=== PATIENT | male | born 1985 | race African-American/Black ===

== ENCOUNTER 2016-04-26 18:29 | Emergency (ER) | payer SELFPAY ==
[~2016-04-26] VITALS: Ht 170.2 cm; Wt 95.5 kg
[~2016-04-26 18:29] MED LIST: ABILIFY10 MG PO; ALPRAZOLAM1 MG PO; AMOXICILLIN500 MG PO; AMOXICILLIN875 MG PO; ANTIVERT25 MG PO; BACTRIM,SEPT1 TABLET PO; BENADRYL25 MG PO; BENTROPINE; BENTYL20 MG PO; Bentyl PO; CEFDINIR300 MG PO; CELEXA20 MG PO; CELEXA40 MG PO; CLARITHROMYCIN500 MG PO; CLEOCIN300 MG PO; Catapres PO; Cogentin PO; DEPAKENE250 MG PO; DEPAKOTE PO; DESYREL100 MG PO; Depakote PO; EPIPEN ADU0.3 MG/0.3 IM; HALDOL1 MG PO; HALDOL10 MG PO; K-TAB10 MEQ PO; KEFLEX500 MG PO; MEDROL DOSEPAK4 MG PO; MELOXICAM15 MG PO; MILK OF MAGN PO; Micro-K,K-Tab,K-Dur, PO; NAPROSYN500 MG PO; NICOTINE PATCH1 EAC1 TD; NORCO 5/3251 TABLET PO; OMEPRAZOLE40 M1 PO; ONDANSETRON ODT4 MG PO; OXAYDO5 MG PO; OXYCODONE HCL5 MG PO; PEN-VEE K,VEET500 MG PO; PERCOCET 5/31 TABLET PO; PREVACID30 MG PO; PRILOSEC40 MG PO; PROTONIX40 MG PO; Percocet 5/325,Endoc PO; Protonix PO; QUETIAPINE; RANITIDINE HCL150 M1 PO; REGLAN10 MG PO; RISPERDAL1 MG PO; RISPERDAL2 MG PO; RISPERIDONE1 MG PO; ROXICODONE5 MG PO; Reglan PO; SEROQUEL200 MG PO; TRAMADOL HCL50 MG PO; TRAZODONE HCL100 MG PO; TRAZODONE HCL50 MG PO; TRILEPTAL75 MG PO; TYLENOL EXTRA500 MG PO; Trileptal PO; ULTRAM50 MG PO; Vyvanse PO; XANAX1 MG PO; Xanax PO; ZOFRAN ODT4 MG PO; ZOFRAN4 MG PO; ZOFRAN8 MG PO; Zofran ODT SL; Zofran PO; risperDAL PO
[2016-04-26] MEDS ORDERED: ULTRAM50 MG PO (18:55)
[2016-04-26] MEDS ORDERED: PEN-VEE K,VEET500 MG PO (18:55)
[2016-04-26 19:24] VITALS: BP 137/76
== END 2016-04-26 19:24 | disposition home or self-care (01) ==
LOC: EME 18:29
PROC: 3E0T3BZ Introduction of Anesthetic Agent into Peripheral Nerves and Plexi, Percutaneous Approach (ICD-10-PCS; principal; 2016-04-26)
DX: S02.5XXA Fracture of tooth (traumatic), initial encounter for closed fracture (principal); E11.9 Type 2 diabetes mellitus without complications; I10 Essential (primary) hypertension; K21.9 Gastro-esophageal reflux disease without esophagitis; F31.9 Bipolar disorder, unspecified; F17.200 Nicotine dependence, unspecified, uncomplicated
CPT/HCPCS: 99281; 99284

== ENCOUNTER 2016-05-26 23:40 | Emergency (ER) | payer SELFPAY ==
[~2016-05-26] VITALS: Ht 170.2 cm; Wt 94.4 kg
[2016-05-27 00:18] LABS: HEMATOCRIT 44.7 % (38.0-50.0); MCH 32.3 PG (29.0-34.0); MCHC 35.1 G/DL (30.0-36.0); MEAN PLAT.VOLUME 9.3 uM^3 (9.0-12.4); PLATELET COUNT 394 K/uL (156-360); RBC DIS.WIDTH-CV 11.9 % (11.8-14.6); RBC DIS.WIDTH-SD 40.6 % (39-53); RED BLOOD COUNT 4.86 M/uL (4.00-5.50); WHITE BLOOD COUNT 4.4 K/uL (4.1-10.2)
[2016-05-27 00:34] LABS: CHLORIDE 97 mEq/L (99-109); POTASSIUM 2.9 mEq/L (3.7-5.4); SODIUM 143 mEq/L (136-147)
[2016-05-27 00:37] LABS: GLUCOSE 99 mg/dL (70-99)
[2016-05-27 00:38] LABS: ANION GAP 15 MEQ/L (2-14)
[2016-05-27 00:39] LABS: TOTAL BILIRUBIN 0.6 mg/dL (0.0-1.0)
[2016-05-27 00:40] LABS: ALKALINE PHOSPHATASE 70 IU/L (3-129); GFR ESTIMATE (CALCULATED) > 59 mL/min/
[2016-05-27 00:41] LABS: UREA NITROGEN (BUN) 9 mg/dL (9-23)
[2016-05-27 01:39] LABS: LIPASE 53 U/L (1.0-51.0)
[2016-05-27] MEDS ORDERED: PEPCID20 MG PO (02:56)
[2016-05-27] MEDS ORDERED: COLACE100 MG PO (02:56)
[2016-05-27] MEDS ORDERED: BENTYL10 MG PO (02:56)
[2016-05-27 02:59] VITALS: BP 106/83
[2016-05-27 03:01] LABS: ADD MIUA? YES; BILIRUBIN MODERATE; BLOOD NEGATIVE; COLOR AMBER ((YELLOW)); GLUCOSE (STRIP) NEGATIVE; KETONES NEGATIVE; LEUKOCYTES TRACE; NITRITE NEGATIVE; PROTEIN (STRIP) >=500; SPECIFIC GRAVITY 1.032 (1.000-1.030)
[2016-05-27 03:35] LABS: BACTERIA RARE /HPF; CASTS NONE SEEN /LPF; CRYSTALS PRESENT; EPITHELIAL CELLS RARE /HPF; MUCUS 3+ /LPF; RED BLOOD CELLS NONE SEEN /HPF (0-5); UCUL ADDED? NO; WHITE BLOOD CELLS RARE /HPF (0-5)
[2016-05-27 03:51] LABS: ICTOTEST NEGATIVE
== END 2016-05-27 03:00 | disposition home or self-care (01) ==
LOC: EME 23:40
DX: R10.84 Generalized abdominal pain (principal); R11.2 Nausea with vomiting, unspecified; E87.6 Hypokalemia; E11.9 Type 2 diabetes mellitus without complications; I10 Essential (primary) hypertension; K21.9 Gastro-esophageal reflux disease without esophagitis; F17.200 Nicotine dependence, unspecified, uncomplicated
CPT/HCPCS: 74000; 80053; 81003; 83690; 85027; 93005; 99281; 99284; J2405

== ENCOUNTER 2016-08-17 18:22 | Emergency (ER) | payer SELFPAY ==
[~2016-08-17] VITALS: Ht 170.2 cm; Wt 94.6 kg
[~2016-08-17 18:22] MED LIST changes: +BENTYL10 MG PO; +COLACE100 MG PO; +PEPCID20 MG PO
[2016-08-17 18:40] LABS: HEMATOCRIT 46.5 % (38.0-50.0); MCH 32.5 PG (29.0-34.0); MCHC 35.3 G/DL (30.0-36.0); MCV 92.3 FL (86-99); MEAN PLAT.VOLUME 9.3 uM^3 (9.0-12.4); PLATELET COUNT 315 K/uL (156-360); RBC DIS.WIDTH-CV 11.6 % (11.8-14.6); RBC DIS.WIDTH-SD 39.1 % (39-53); RED BLOOD COUNT 5.04 M/uL (4.00-5.50); WHITE BLOOD COUNT 3.7 K/uL (4.1-10.2)
[2016-08-17 18:48] LABS: CHLORIDE 102 mEq/L (99-109); POTASSIUM 3.7 mEq/L (3.7-5.4); SODIUM 139 mEq/L (136-147)
[2016-08-17 18:50] LABS: GLUCOSE 114 mg/dL (70-99)
[2016-08-17 18:52] LABS: ANION GAP 9 MEQ/L (2-14); TOTAL BILIRUBIN 0.6 mg/dL (0.0-1.0)
[2016-08-17 18:54] LABS: ALKALINE PHOSPHATASE 57 IU/L (3-129); GFR ESTIMATE (CALCULATED) > 59 mL/min/
[2016-08-17 18:55] LABS: UREA NITROGEN (BUN) 11 mg/dL (9-23)
[2016-08-17] MEDS ORDERED: ALPRAZOLAM1 MG PO (18:55)
[2016-08-17 19:20] LABS: LIPASE 62 U/L (1.0-51.0)
[2016-08-17 19:44] LABS: ADD MIUA? YES; BILIRUBIN SMALL; BLOOD NEGATIVE; COLOR YELLOW ((YELLOW)); GLUCOSE (STRIP) NEGATIVE; KETONES NEGATIVE; LEUKOCYTES NEGATIVE; NITRITE NEGATIVE; PROTEIN (STRIP) 100; SPECIFIC GRAVITY 1.031 (1.000-1.030)
[2016-08-17 19:50] LABS: BACTERIA RARE /HPF; EPITHELIAL CELLS RARE /HPF; MUCUS TRACE /LPF; RED BLOOD CELLS 0-5 /HPF (0-5); UCUL ADDED? NO; WHITE BLOOD CELLS 0-5 /HPF (0-5)
[2016-08-17] MEDS ORDERED: ULTRAM50 MG PO (21:50)
[2016-08-17] MEDS ORDERED: ZOFRAN ODT4 MG PO (21:50)
[2016-08-17 22:03] VITALS: BP 139/78
== END 2016-08-17 22:07 | disposition home or self-care (01) ==
LOC: EME 18:22
DX: K52.9 Noninfective gastroenteritis and colitis, unspecified (principal); Z88.6 Allergy status to analgesic agent; Z91.013 Allergy to seafood; F17.200 Nicotine dependence, unspecified, uncomplicated
CPT/HCPCS: 74177; 80053; 81003; 83690; 85027; 99281; 99285; J1200; J2270; J2405; J2765; J3010; J7030

== ENCOUNTER 2016-09-29 22:11 | Emergency (ER) | payer OTHER ==
[~2016-09-29] VITALS: Ht 170.2 cm; Wt 89.9 kg
[2016-09-29 23:28] LABS: HEMATOCRIT 44.4 % (38.0-50.0); MCH 31.8 PG (29.0-34.0); MCHC 36.5 G/DL (30.0-36.0); MCV 87.1 FL (86-99); MEAN PLAT.VOLUME 9.6 uM^3 (9.0-12.4); PLATELET COUNT 338 K/uL (156-360); RBC DIS.WIDTH-CV 11.1 % (11.8-14.6); RBC DIS.WIDTH-SD 35.9 % (39-53); WHITE BLOOD COUNT 3.9 K/uL (4.1-10.2)
[2016-09-29 23:32] LABS: ADD MIUA? YES; BILIRUBIN SMALL; BLOOD NEGATIVE; COLOR AMBER ((YELLOW)); GLUCOSE (STRIP) NEGATIVE; KETONES 5; LEUKOCYTES NEGATIVE; NITRITE NEGATIVE; PROTEIN (STRIP) 100; SPECIFIC GRAVITY 1.028 (1.000-1.030)
[2016-09-29 23:37] LABS: CHLORIDE 81 mEq/L (99-109); SODIUM 134 mEq/L (136-147)
[2016-09-29 23:39] LABS: BACTERIA RARE /HPF; EPITHELIAL CELLS RARE /HPF; HYALINE CASTS 0-5 /LPF; MUCUS TRACE /LPF; RED BLOOD CELLS 0-5 /HPF (0-5); UCUL ADDED? NO; WHITE BLOOD CELLS 0-5 /HPF (0-5)
[2016-09-29 23:39] LABS: GLUCOSE 105 mg/dL (70-99)
[2016-09-29 23:40] LABS: ANION GAP 14 MEQ/L (2-14)
[2016-09-29 23:41] LABS: TOTAL BILIRUBIN 0.9 mg/dL (0.0-1.0)
[2016-09-29 23:43] LABS: ALKALINE PHOSPHATASE 81 IU/L (3-129); GFR ESTIMATE (CALCULATED) > 59 mL/min/
[2016-09-29 23:44] LABS: UREA NITROGEN (BUN) 13 mg/dL (9-23)
[2016-09-29 23:47] LABS: POTASSIUM 2.2 mEq/L (3.7-5.4)
[2016-09-30 00:25] LABS: LIPASE 75 U/L (1.0-51.0)
[2016-09-30 02:46] VITALS: BP 146/96
[2016-09-30] MEDS ORDERED: XANAX0.5 MG PO (20:51)
[2016-09-30] MEDS ORDERED: CELEXA40 MG PO (20:54)
[2016-09-30] MEDS ORDERED: RISPERDAL1 MG PO (20:56)
[2016-10-01] MEDS ORDERED: FLAGYL500 MG PO (10:52)
[2016-10-01] MEDS ORDERED: CIPRO500 MG PO (10:52)
[2016-10-01] MEDS ORDERED: ZOFRAN4 MG PO (10:53)
== END 2016-09-30 02:48 | disposition left against medical advice (07) ==
LOC: EME 22:11 → RME 22:11
DX: E87.6 Hypokalemia (principal); R11.2 Nausea with vomiting, unspecified; R94.31 Abnormal electrocardiogram [ECG] [EKG]; F17.200 Nicotine dependence, unspecified, uncomplicated; K21.9 Gastro-esophageal reflux disease without esophagitis; F32.9 Major depressive disorder, single episode, unspecified; F41.9 Anxiety disorder, unspecified; Z88.6 Allergy status to analgesic agent
CPT/HCPCS: 80053; 81003; 83690; 84132; 85027; 93005; 99281; 99284; J2405; J3480; J7030

== ENCOUNTER 2016-09-30 12:29 | Observation (INO) | payer OTHER ==
[~2016-09-30] VITALS: Ht 170.2 cm; Wt 93.8 kg
[2016-09-30 14:50] LABS: EOSINOPHIL (%) 0.7 % (0-5); HEMATOCRIT 43.1 % (38.0-50.0); INSTRUMENT ABS NEUTROPHIL CT 1.3 K/uL; LYMPHOCYTE COUNT 1.2 K/uL (1.0-2.8); MCHC 36.2 G/DL (30.0-36.0); MCV 88.3 FL (86-99); MEAN PLAT.VOLUME 9.5 uM^3 (9.0-12.4); MONOCYTE (%) 14.8 % (3-12); MONOCYTE COUNT 0.5 K/uL (0-0.8); NEUTROPHIL (%) 43.5 % (45-76); NEUTROPHIL COUNT 1.3 K/uL (1.8-6.4); PLATELET COUNT 310 K/uL (156-360); RBC DIS.WIDTH-CV 11.4 % (11.8-14.6); RED BLOOD COUNT 4.88 M/uL (4.00-5.50); WHITE BLOOD COUNT 3.1 K/uL (4.1-10.2)
[2016-09-30 15:03] LABS: CHLORIDE 88 mEq/L (99-109); POTASSIUM 2.7 mEq/L (3.7-5.4); SODIUM 135 mEq/L (136-147)
[2016-09-30 15:05] LABS: GLUCOSE 114 mg/dL (70-99)
[2016-09-30 15:06] LABS: ANION GAP 11 MEQ/L (2-14)
[2016-09-30 15:07] LABS: TOTAL BILIRUBIN 0.8 mg/dL (0.0-1.0)
[2016-09-30 15:09] LABS: ALKALINE PHOSPHATASE 76 IU/L (3-129); GFR ESTIMATE (CALCULATED) > 59 mL/min/
[2016-09-30 15:10] LABS: UREA NITROGEN (BUN) 11 mg/dL (9-23)
[2016-09-30 15:12] LABS: LIPASE 86 U/L (1.0-51.0)
[2016-09-30 18:50] LABS: SERUM ETHYL ALCOHOL < 10 mg/dL
[2016-09-30 19:34] LABS: AMPHETAMINES QUANT VALUE 0 NG/ML; BARBITUATES QUANT VALUE 0 NG/ML; BENZODIAZEPINES QUANT VALUE 0 NG/ML; BENZODIAZEPINES, URINE SCREEN Negative (200 ng/mL); PHENCYCLIDINE QUANT VALUE 0 NG/ML
[2016-09-30 19:42] VITALS: BP 156/90
[2016-09-30 20:45] LABS: ANION GAP 8 MEQ/L (2-14); CHLORIDE 98 MEQ/L (99-109); GFR ESTIMATE (CALCULATED) > 59 mL/min/; GLUCOSE 98 mg/dL (70-99); SAMPLE HEMOLYSIS CHECK 0; SAMPLE ICTERIC CHECK 0; SAMPLE LIPEMIA CHECK 0; SODIUM 134 MEQ/L (136-147); UREA NITROGEN (BUN) 10 mg/dL (9-23)
[2016-09-30] MEDS ORDERED: XANAX0.5 MG PO (20:51)
[2016-09-30] MEDS ORDERED: CELEXA40 MG PO (20:54)
[2016-09-30] MEDS ORDERED: RISPERDAL1 MG PO (20:56)
[2016-09-30 20:58] LABS: POTASSIUM 3.3 MEQ/L (3.7-5.4)
[2016-09-30 21:06] LABS: MAGNESIUM 2.4 mg/dL (1.3-2.7)
[2016-10-01 00:04] VITALS: BP 122/79
[2016-10-01 01:42] LABS: POTASSIUM 3.7 mEq/L (3.7-5.4); SODIUM 137 mEq/L (136-147)
[2016-10-01 01:44] LABS: GLUCOSE 108 mg/dL (70-99)
[2016-10-01 01:45] LABS: CHLORIDE 102 mEq/L (99-109)
[2016-10-01 01:46] LABS: ANION GAP 6 MEQ/L (2-14)
[2016-10-01 01:48] LABS: GFR ESTIMATE (CALCULATED) > 59 mL/min/
[2016-10-01 01:49] LABS: UREA NITROGEN (BUN) 12 mg/dL (9-23)
[2016-10-01 04:16] VITALS: BP 112/65
[2016-10-01 05:39] LABS: ANION GAP 3 MEQ/L (2-14); CHLORIDE 103 MEQ/L (99-109); GFR ESTIMATE (CALCULATED) > 59 mL/min/; GLUCOSE 88 mg/dL (70-99); POTASSIUM 3.6 MEQ/L (3.7-5.4); SAMPLE HEMOLYSIS CHECK 0; SAMPLE ICTERIC CHECK 0; SAMPLE LIPEMIA CHECK 0; SODIUM 137 MEQ/L (136-147); UREA NITROGEN (BUN) 13 mg/dL (9-23)
[2016-10-01 07:14] LABS: MCH 33.5 PG (29.0-34.0); MCHC 36.6 G/DL (30.0-36.0); MCV 91.7 FL (86-99); MEAN PLAT.VOLUME 9.7 uM^3 (9.0-12.4); PLAT.SUFFICIENCY ADEQUATE; RBC DIS.WIDTH-CV 11.9 % (11.8-14.6); RBC DIS.WIDTH-SD 40.2 % (39-53); WHITE BLOOD COUNT 3.2 K/uL (4.1-10.2)
[2016-10-01 07:18] LABS: PLATELET COUNT 208 K/uL (156-360); RED BLOOD COUNT 3.49 M/uL (4.00-5.50)
[2016-10-01 08:43] VITALS: BP 124/80
[2016-10-01] MEDS ORDERED: FLAGYL500 MG PO (10:52)
[2016-10-01] MEDS ORDERED: CIPRO500 MG PO (10:52)
[2016-10-01] MEDS ORDERED: ZOFRAN4 MG PO (10:53)
== END 2016-10-01 11:34 | disposition home or self-care (01) ==
LOC: RME 12:29 → EME 12:29 → 5WEST 18:09 → EDOF 18:09 → ENRESERV 18:11 → 5WEST 19:19 → ENPENDDIS 10-01 → 5WEST 10-01 11:34
PROVIDERS: Internal Medicine; Physician Assistant; Physician Assistant Medical
DX: K29.70 Gastritis, unspecified, without bleeding (principal); F41.9 Anxiety disorder, unspecified; F17.200 Nicotine dependence, unspecified, uncomplicated; E87.6 Hypokalemia; R74.8 Abnormal levels of other serum enzymes; F20.9 Schizophrenia, unspecified; F32.9 Major depressive disorder, single episode, unspecified; F12.10 Cannabis abuse, uncomplicated; Z91.013 Allergy to seafood; Z88.6 Allergy status to analgesic agent; Z91.018 Allergy to other foods
CPT/HCPCS: 71010; 74177; 80048; 80048 91; 80053; 80306 90; 83605; 83690; 83735; 85025; 85027; 93005; 99281; 99285; G0378; G0480; J0744; J1650; J2270; J2405; J2543; J3480; J7030; J7040; S0030

== ENCOUNTER 2016-12-18 00:27 | Emergency (ER) | payer OTHER ==
[~2016-12-18] VITALS: Ht 170.2 cm; Wt 91.1 kg
[~2016-12-18 00:27] MED LIST changes: +CIPRO500 MG PO; +FLAGYL500 MG PO; +XANAX0.5 MG PO
[2016-12-18 01:07] LABS: ADD MIUA? YES; BILIRUBIN SMALL; BLOOD NEGATIVE; COLOR YELLOW ((YELLOW)); GLUCOSE (STRIP) NEGATIVE; KETONES NEGATIVE; LEUKOCYTES TRACE; NITRITE NEGATIVE; PROTEIN (STRIP) 100; SPECIFIC GRAVITY 1.028 (1.000-1.030)
[2016-12-18 01:53] LABS: BACTERIA RARE /HPF; EPITHELIAL CELLS RARE /HPF; MUCUS TRACE /LPF; RED BLOOD CELLS 0-5 /HPF (0-5); UCUL ADDED? NO; WHITE BLOOD CELLS 0-5 /HPF (0-5)
[2016-12-18 02:09] LABS: HEMATOCRIT 45.9 % (38.0-50.0); MCH 32.2 PG (29.0-34.0); MCHC 36.6 G/DL (30.0-36.0); MCV 88.1 FL (86-99); MEAN PLAT.VOLUME 9.3 uM^3 (9.0-12.4); PLATELET COUNT 354 K/uL (156-360); RBC DIS.WIDTH-CV 11.4 % (11.8-14.6); RED BLOOD COUNT 5.21 M/uL (4.00-5.50)
[2016-12-18 02:27] LABS: CHLORIDE 83 mEq/L (99-109); POTASSIUM 2.7 mEq/L (3.7-5.4); SODIUM 136 mEq/L (136-147)
[2016-12-18 02:29] LABS: GLUCOSE 111 mg/dL (70-99)
[2016-12-18 02:30] LABS: ANION GAP 15 MEQ/L (2-14)
[2016-12-18 02:31] LABS: TOTAL BILIRUBIN 0.9 mg/dL (0.0-1.0)
[2016-12-18 02:33] LABS: ALKALINE PHOSPHATASE 76 IU/L (3-129); GFR ESTIMATE (CALCULATED) > 59 mL/min/
[2016-12-18 02:34] LABS: UREA NITROGEN (BUN) 13 mg/dL (9-23)
[2016-12-18 02:36] LABS: LIPASE 92 U/L (1.0-51.0)
[2016-12-18] MEDS ORDERED: ZOFRAN ODT4 MG PO (06:26)
[2016-12-18] MEDS ORDERED: PRILOSEC20 MG PO (06:26)
[2016-12-18] MEDS ORDERED: OXYCODONE HCL5 M1 PO (06:26)
[2016-12-18] MEDS ORDERED: ZOSTRIX56.6 G1 TP (06:26)
[2016-12-18] MEDS ORDERED: K-DUR20 MEQ PO (06:28)
[2016-12-18 06:43] VITALS: BP 150/74
== END 2016-12-18 06:44 | disposition home or self-care (01) ==
LOC: EME 00:27
DX: F12.10 Cannabis abuse, uncomplicated (principal); E86.0 Dehydration; E87.6 Hypokalemia; K29.70 Gastritis, unspecified, without bleeding; I10 Essential (primary) hypertension; E11.9 Type 2 diabetes mellitus without complications; K21.9 Gastro-esophageal reflux disease without esophagitis; F41.9 Anxiety disorder, unspecified; F32.9 Major depressive disorder, single episode, unspecified; F31.9 Bipolar disorder, unspecified; F25.9 Schizoaffective disorder, unspecified; F17.200 Nicotine dependence, unspecified, uncomplicated; Z86.73 Personal history of transient ischemic attack (TIA), and cerebral infarction without residual deficits
CPT/HCPCS: 74177; 80053; 81003; 83690; 85027; 99281; 99285; C9113; J2405; J3010; J3480; J7030

== ENCOUNTER 2017-02-17 19:56 | Observation (INO) | payer OTHER ==
[~2017-02-17] VITALS: Ht 170.2 cm; Wt 91.0 kg
[~2017-02-17 19:56] MED LIST changes: +K-DUR20 MEQ PO; +OXYCODONE HCL5 M1 PO; +PRILOSEC20 MG PO; +ZOSTRIX56.6 G1 TP
[2017-02-17 20:39] LABS: ADD MIUA? YES; BILIRUBIN NEGATIVE; BLOOD NEGATIVE; COLOR YELLOW ((YELLOW)); GLUCOSE (STRIP) NEGATIVE; KETONES NEGATIVE; LEUKOCYTES NEGATIVE; NITRITE NEGATIVE; PROTEIN (STRIP) 100; SPECIFIC GRAVITY 1.023 (1.000-1.030)
[2017-02-17 20:45] LABS: BACTERIA RARE /HPF; EPITHELIAL CELLS RARE /HPF; MUCUS TRACE /LPF; RED BLOOD CELLS 0-5 /HPF (0-5); UCUL ADDED? NO; WHITE BLOOD CELLS 0-5 /HPF (0-5)
[2017-02-17 20:49] LABS: HEMATOCRIT 42.4 % (38.0-50.0); MCH 32.4 PG (29.0-34.0); MCHC 37.5 G/DL (30.0-36.0); MCV 86.4 FL (86-99); MEAN PLAT.VOLUME 9.2 uM^3 (9.0-12.4); PLATELET COUNT 396 K/uL (156-360); RBC DIS.WIDTH-CV 11.5 % (11.8-14.6); RBC DIS.WIDTH-SD 36.7 % (39-53); RED BLOOD COUNT 4.91 M/uL (4.00-5.50); WHITE BLOOD COUNT 3.6 K/uL (4.1-10.2)
[2017-02-17 21:04] LABS: CHLORIDE 79 mEq/L (99-109); SODIUM 134 mEq/L (136-147)
[2017-02-17 21:06] LABS: GLUCOSE 89 mg/dL (70-99)
[2017-02-17 21:08] LABS: ANION GAP 16 MEQ/L (2-14); TOTAL BILIRUBIN 0.6 mg/dL (0.0-1.0)
[2017-02-17 21:10] LABS: ALKALINE PHOSPHATASE 63 IU/L (3-129); GFR ESTIMATE (CALCULATED) > 59 mL/min/ (58.99-99999)
[2017-02-17 21:11] LABS: UREA NITROGEN (BUN) 9 mg/dL (9-23)
[2017-02-17 21:20] LABS: POTASSIUM 2.1 mEq/L (3.7-5.4)
[2017-02-17 22:25] LABS: MAGNESIUM 2.7 mg/dL (1.3-2.7)
[2017-02-17 22:32] LABS: CREATINE KINASE 572 IU/L (1-294); LIPASE 49 U/L (1.0-51.0)
[2017-02-18 03:49] VITALS: BP 129/74
[2017-02-18 04:52] LABS: SODIUM 133 mEq/L (136-147)
[2017-02-18 04:54] LABS: GLUCOSE 123 mg/dL (70-99)
[2017-02-18 04:55] LABS: ANION GAP 12 MEQ/L (2-14)
[2017-02-18 04:58] LABS: GFR ESTIMATE (CALCULATED) > 59 mL/min/ (58.99-99999)
[2017-02-18 04:59] LABS: UREA NITROGEN (BUN) 10 mg/dL (9-23)
[2017-02-18 05:03] LABS: CHLORIDE 87 mEq/L (99-109); POTASSIUM 2.2 mEq/L (3.7-5.4)
[2017-02-18 08:20] VITALS: BP 110/59
[2017-02-18 10:33] LABS: ANION GAP 6 MEQ/L (2-14); CHLORIDE 90 MEQ/L (99-109); GFR ESTIMATE (CALCULATED) > 59 mL/min/ (58.99-99999); GLUCOSE 97 mg/dL (70-99); SAMPLE HEMOLYSIS CHECK 0; SAMPLE ICTERIC CHECK 0; SAMPLE LIPEMIA CHECK 0; SODIUM 135 MEQ/L (136-147); UREA NITROGEN (BUN) 9 mg/dL (9-23)
[2017-02-18 10:36] LABS: POTASSIUM 2.8 MEQ/L (3.7-5.4)
[2017-02-18 11:53] VITALS: BP 116/59
[2017-02-19 00:07] VITALS: BP 116/74
[2017-02-19 05:21] LABS: EOSINOPHIL (%) 2.4 % (0-5); EOSINOPHIL COUNT 0.1 K/uL (0-0.3); INSTRUMENT ABS NEUTROPHIL CT 0.5 K/uL; LYMPHOCYTE COUNT 1.2 K/uL (1.0-2.8); MCH 33.2 PG (29.0-34.0); MCHC 36.9 G/DL (30.0-36.0); MCV 90.1 FL (86-99); MONOCYTE (%) 11.6 % (3-12); MONOCYTE COUNT 0.2 K/uL (0-0.8); NEUTROPHIL (%) 26.1 % (45-76); NEUTROPHIL COUNT 0.5 K/uL (1.8-6.4); RBC DIS.WIDTH-CV 12.1 % (11.8-14.6); RBC DIS.WIDTH-SD 39.9 % (39-53); WHITE BLOOD COUNT 2.1 K/uL (4.1-10.2)
[2017-02-19 05:24] LABS: RED BLOOD COUNT 3.55 M/uL (4.00-5.50)
[2017-02-19 06:02] LABS: ANION GAP 7 MEQ/L (2-14); GFR ESTIMATE (CALCULATED) > 59 mL/min/ (58.99-99999); GLUCOSE 102 mg/dL (70-99); SAMPLE HEMOLYSIS CHECK 0; SAMPLE ICTERIC CHECK 0; SAMPLE LIPEMIA CHECK 0; SODIUM 138 MEQ/L (136-147); UREA NITROGEN (BUN) 6 mg/dL (9-23)
[2017-02-19 06:06] LABS: CHLORIDE 100 MEQ/L (99-109)
[2017-02-19 06:21] LABS: PLAT.SUFFICIENCY ADEQUATE; PLATELET CLUMPS PRESENT - PLATELET COUNT APPEARS ADQ.; PLATELET COUNT UNABLE TO REPORT K/uL (156-360)
[2017-02-19 09:17] VITALS: BP 111/72
[2017-02-19] MEDS ORDERED: NICOTINE PATCH1 EAC2 TD (11:10)
[2017-02-19] MEDS ORDERED: K-DUR20 MEQ PO (11:10)
== END 2017-02-19 12:00 | disposition home or self-care (01) ==
LOC: EXP 19:56 → EME 19:56 → EDOF 02-18 02:19 → 5WEST 02-18 02:19 → ENRESERV 02-18 02:26 → 5WEST 02-18 03:43
PROVIDERS: Hospitalist; Internal Medicine; Physician Assistant
DX: E87.6 Hypokalemia (principal); F12.188 Cannabis abuse with other cannabis-induced disorder; R11.2 Nausea with vomiting, unspecified; G89.29 Other chronic pain; R10.9 Unspecified abdominal pain; K86.1 Other chronic pancreatitis; E87.1 Hypo-osmolality and hyponatremia; I10 Essential (primary) hypertension; R56.9 Unspecified convulsions; G43.909 Migraine, unspecified, not intractable, without status migrainosus; F20.9 Schizophrenia, unspecified; F31.9 Bipolar disorder, unspecified; F17.200 Nicotine dependence, unspecified, uncomplicated; E78.5 Hyperlipidemia, unspecified; Z86.19 Personal history of other infectious and parasitic diseases; E66.9 Obesity, unspecified; Z68.31 Body mass index [BMI] 31.0-31.9, adult; M62.82 Rhabdomyolysis; E83.39 Other disorders of phosphorus metabolism; E87.3 Alkalosis; Z82.49 Family history of ischemic heart disease and other diseases of the circulatory system; Z83.3 Family history of diabetes mellitus; Z91.013 Allergy to seafood; Z88.6 Allergy status to analgesic agent
CPT/HCPCS: 80048; 80048 91; 80053; 80306 90; 81003; 82550; 83690; 83735; 84100; 84132 91; 85025; 85027; 93005; 99281; 99285; G0378; J1650; J2270; J2765; J3480; J7030; J7040; S0028

== ENCOUNTER 2017-04-18 17:03 | Emergency (ER) | payer OTHER ==
[~2017-04-18] VITALS: Ht 170.2 cm; Wt 92.1 kg
[~2017-04-18 17:03] MED LIST changes: +NICOTINE PATCH1 EAC2 TD
[2017-04-18 17:41] VITALS: BP 129/84
[2017-04-18 18:34] LABS: HEMATOCRIT 41.8 % (38.0-50.0); HEMOGLOBIN 15.4 G/DL (12.5-16.6); MCH 32.7 PG (29.0-34.0); MCHC 36.8 G/DL (30.0-36.0); MCV 88.7 FL (86-99); PLATELET COUNT 391 K/uL (156-360); RBC DIS.WIDTH-CV 11.8 % (11.8-14.6); RBC DIS.WIDTH-SD 38.4 % (39-53); RED BLOOD COUNT 4.71 M/uL (4.00-5.50)
[2017-04-18 19:07] LABS: APPEARANCE CLEAR ((CLEAR)); BILIRUBIN SMALL; BLOOD NEGATIVE; COLOR AMBER ((YELLOW)); GLUCOSE (STRIP) NEGATIVE; KETONES NEGATIVE; LEUKOCYTES NEGATIVE; NITRITE NEGATIVE; PROTEIN (STRIP) 100; SPECIFIC GRAVITY 1.029 (1.000-1.030)
[2017-04-18 19:12] LABS: ALBUMIN 4.6 G/DL (3.2-4.8); ALKALINE PHOSPHATASE 58 IU/L (3-129); ALT (GPT) 27 IU/L (3-49); AST (GOT) 21 IU/L (2-34); CHLORIDE 86 MEQ/L (99-109); GFR ESTIMATE (CALCULATED) > 59 mL/min/ (58.99-99999); GLUCOSE 127 mg/dL (70-99); LIPASE 231 U/L (1.0-51.0); SODIUM 137 MEQ/L (136-147); TOTAL BILIRUBIN 0.4 MG/DL (0.0-1.0); TOTAL PROTEIN 8.1 G/DL (6.4-8.3); UREA NITROGEN (BUN) 10 mg/dL (9-23)
[2017-04-18 19:18] LABS: POTASSIUM 2.4 MEQ/L (3.7-5.4)
[2017-04-18 19:35] LABS: BACTERIA NONE SEEN /HPF; EPITHELIAL CELLS RARE /HPF; HYALINE CASTS 0-5 /LPF; MUCUS 1+ /LPF; RED BLOOD CELLS 0-5 /HPF (0-5); TRIPLE PHOSPHATE CRYSTALS 1+ /HPF; UCUL ADDED? NO; WHITE BLOOD CELLS 0-5 /HPF (0-5)
== END 2017-04-18 22:30 | disposition left against medical advice (07) ==
LOC: EME 17:03
DX: R10.9 Unspecified abdominal pain (principal); R11.10 Vomiting, unspecified; Z53.21 Procedure and treatment not carried out due to patient leaving prior to being seen by health care provider
CPT/HCPCS: 80053; 81003; 83690; 85027

== ENCOUNTER 2017-06-10 20:11 | Emergency (ER) | payer OTHER ==
[~2017-06-10] VITALS: Ht 170.2 cm; Wt 95.4 kg
[2017-06-10 20:25] LABS: HEMATOCRIT 41.6 % (38.0-50.0); HEMOGLOBIN 14.8 G/DL (12.5-16.6); MCH 32.9 PG (29.0-34.0); MCHC 35.6 G/DL (30.0-36.0); MCV 92.4 FL (86-99); PLATELET COUNT 313 K/uL (156-360); RBC DIS.WIDTH-CV 12.1 % (11.8-14.6); RBC DIS.WIDTH-SD 41.4 % (39-53); WHITE BLOOD COUNT 3.5 K/uL (4.1-10.2)
[2017-06-10 20:28] LABS: APPEARANCE SL.HAZY ((CLEAR)); BILIRUBIN MODERATE; BLOOD NEGATIVE; GLUCOSE (STRIP) NEGATIVE; KETONES 5; LEUKOCYTES NEGATIVE; NITRITE NEGATIVE; PROTEIN (STRIP) 100
[2017-06-10 20:29] LABS: ICTOTEST ND
[2017-06-10 20:35] LABS: ALBUMIN 4.4 g/dL (3.2-4.8); CHLORIDE 101 mEq/L (99-109); POTASSIUM 3.4 mEq/L (3.7-5.4); SODIUM 141 mEq/L (136-147)
[2017-06-10 20:36] LABS: BACTERIA RARE /HPF; CALCIUM OXALATE CRYSTALS 1+ /HPF; COLOR AMBER ((YELLOW)); EPITHELIAL CELLS RARE /HPF; MUCUS 2+ /LPF; RED BLOOD CELLS 0-5 /HPF (0-5); UCUL ADDED? NO; WHITE BLOOD CELLS 0-5 /HPF (0-5)
[2017-06-10 20:37] LABS: GLUCOSE 103 mg/dL (70-99)
[2017-06-10 20:38] LABS: TOTAL PROTEIN 7.8 g/dL (6.4-8.3)
[2017-06-10 20:39] LABS: TOTAL BILIRUBIN 0.4 mg/dL (0.0-1.0)
[2017-06-10 20:41] LABS: ALKALINE PHOSPHATASE 57 IU/L (3-129); CREATININE 1.2 mg/dL (0.6-1.3); GFR ESTIMATE (CALCULATED) > 59 mL/min/ (58.99-99999)
[2017-06-10 20:42] LABS: UREA NITROGEN (BUN) 6 mg/dL (9-23)
[2017-06-10 20:43] LABS: AST (GOT) 18 IU/L (2-34)
[2017-06-10 20:44] LABS: ALT (GPT) 21 IU/L (3-49)
[2017-06-11 00:04] LABS: LIPASE 72 U/L (1.0-51.0)
[2017-06-11] MEDS ORDERED: BENTYL20 MG PO (00:45)
[2017-06-11] MEDS ORDERED: ZOFRAN ODT8 MG PO (00:45)
[2017-06-11 01:20] VITALS: BP 127/75
== END 2017-06-11 01:25 | disposition home or self-care (01) ==
LOC: EME 20:11
DX: R10.10 Upper abdominal pain, unspecified (principal); R11.2 Nausea with vomiting, unspecified; E86.0 Dehydration; K21.9 Gastro-esophageal reflux disease without esophagitis; I10 Essential (primary) hypertension; E11.9 Type 2 diabetes mellitus without complications; F32.9 Major depressive disorder, single episode, unspecified; F31.9 Bipolar disorder, unspecified; F41.9 Anxiety disorder, unspecified; F25.9 Schizoaffective disorder, unspecified; F17.200 Nicotine dependence, unspecified, uncomplicated; Z86.73 Personal history of transient ischemic attack (TIA), and cerebral infarction without residual deficits; Z88.6 Allergy status to analgesic agent
CPT/HCPCS: 80053; 81003; 83690; 85027; 99281; 99283; J0500

== ENCOUNTER 2017-10-17 15:13 | Emergency (ER) | payer OTHER ==
[~2017-10-17] VITALS: Ht 170.2 cm; Wt 96.1 kg
[~2017-10-17 15:13] MED LIST changes: +ZOFRAN ODT8 MG PO
[2017-10-17] MEDS ORDERED: KEFLEX500 MG PO (17:05)
[2017-10-17] MEDS ORDERED: NAPROSYN500 MG PO (17:05)
[2017-10-17 17:40] VITALS: BP 139/119
== END 2017-10-17 17:41 | disposition home or self-care (01) ==
LOC: EME 15:13
DX: L03.313 Cellulitis of chest wall (principal); Z88.8 Allergy status to other drugs, medicaments and biological substances; F17.200 Nicotine dependence, unspecified, uncomplicated
CPT/HCPCS: 99281; 99284